=== PATIENT | male | born 1960 | race Caucasian/White ===

== ENCOUNTER → 2021-11-04 | Outpatient (CLI) | payer OTHER ==
[~2021-11-04] MED LIST: ATORVASTATIN CA40 MG PO; EPIPEN 2-P0.3 MG/0.3 INJ; HYDROCHLOROTHIA25 MG PO
== END ==
LOC: KOH-I 11:28
DX: M54.2 Cervicalgia (principal); M25.562 Pain in left knee; M25.78 Osteophyte, vertebrae; R93.6 Abnormal findings on diagnostic imaging of limbs
CPT/HCPCS: 72050; 73562

== ENCOUNTER → 2022-02-14 | Outpatient (CLI) | payer OTHER ==
[~2022-02-14] VITALS: Ht 186.7 cm; Wt 133.8 kg
== END ==
LOC: EROP 14:36
DX: U07.1 COVID-19 (principal); I10 Essential (primary) hypertension; E78.5 Hyperlipidemia, unspecified; Z68.35 Body mass index [BMI] 35.0-35.9, adult
CPT/HCPCS: M0222; Q0222